=== PATIENT | female | born 1970 ===

== ENCOUNTER 2017-10-20 15:12 | Emergency (ER) | payer OTHER ==
[2017-10-20 15:19] VITALS: O2SAT 98
--- NOTE | 2017-10-20 15:56 | ED PDOC ---
HPI: General Adult Time Seen by Provider: 10/20/17 15:24 Chief Complaint (Nursing): Dizziness/Lightheaded Chief Complaint (Provider): headache, dizzy History Per: Patient, Activity Aid (Friend at bedside is translating for patient in macedonian) Additional Complaint(s): 47-year-old female with history of hypertension and diabetes presents with generalized headache and dizziness ongoing for 5 days. Patient [place] to this [place] and has been taking hypertension and diabetes medications from her [place]. She is currently on insulin and pills for diabetes and takes enalapril for blood pressure. For the last 5 days patient has felt intermittent headaches with dizziness. She denies chest pain, shortness of breath or dyspnea on exertion. Patient states she is compliant with her medications but is concerned she will run out of them soon. PMD: none Past Medical History Reviewed: Historical Data, Nursing Documentation, Vital Signs Vital Signs: Last Vital Signs Temp 98.5 F 10/20/17 15:16 Pulse 110 H 10/20/17 15:16 Resp 16 10/20/17 15:16 BP 103/74 10/20/17 15:16 Pulse Ox 98 10/20/17 17:23 - Medical History PMH: Diabetes, HTN - Surgical History Surgical History: Cholecystectomy - Family History Family History: States: No Known Family Hx - Living Arrangements Living Arrangements: With Family - Social History Current smoker - smoking cessation education provided: No Alcohol: None Drugs: Denies - Home Medications Home Medications: Ambulatory Orders Medication Instructions Recorded Enalapril Maleate [Vasotec] 20 mg PO DAILY #30 tab 10/20/17 MetFORMIN [glucoPHAGE] 1,000 mg PO BID #60 tab 10/20/17 - Allergies Allergies/Adverse Reactions: Allergies Allergy/AdvReac Type Severity Reaction Status Date / Time No Known Allergies Allergy Verified 10/20/17 15:15 Review of Systems ROS Statement: Except As Marked, All Systems Reviewed And Found Negative Constitutional: Negative for: Fever, Chills, Weakness Cardiovascular: Negative for: Chest Pain Respiratory: Negative for: Cough Gastrointestinal: Negative for: Nausea, Vomiting Neurological: Positive for: Headache, Dizziness, Other (Intermittent for 5 days) Physical Exam - Reviewed Nursing Documentation Reviewed: Yes Vital Signs Reviewed: Yes - Physical Exam Appears: Positive for: Well, Non-toxic, No Acute Distress Skin: Positive for: Normal Color. Negative for: Rash Eye Exam: Positive for: Normal appearance Cardiovascular/Chest: Positive for: Regular Rate, Rhythm Respiratory: Positive for: Normal Breath Sounds. Negative for: Wheezing, Respiratory Distress Gastrointestinal/Abdominal: Positive for: Soft. Negative for: Tenderness, Distended, Guarding, Rebound Back: Negative for: L CVA Tenderness, R CVA Tenderness Extremity: Positive for: Normal ROM. Negative for: Pedal Edema Neurologic/Psych: Positive for: Alert, Oriented - Laboratory Results Result Diagrams: 10/20/17 16:14 10/20/17 16:14 Urine dip results: Negative for: Leukocyte Esterase, Blood, Nitrate, Ketones, Glucose, Bilirubin, Protein - ECG O2 Sat by Pulse Oximetry: 98 Pulse Ox Interpretation: Normal - Other Rad CT head X-Ray: Read By Radiologist X-Ray Interpretation: no acute finding CXR X-Ray: Interpreted by Me, Viewed By Me X-Ray Interpretation: no acute finding Medical Decision Making Medical Decision Makin-year-old female with dizziness and headache Plan: CBC CMP Troponin EKG CXR IVF PO tylenol Glucose POC Initially glucose was 281 upon arrival, repeat glucose 179. Patient was given prescriptions for metformin and enalapril. She was referred to clinic for follow up. Disposition - Clinical Impression Clinical Impression: Dizziness, Diabetes, Hypertension - Patient ED Disposition Is Patient to be Admitted: No Counseled Patient/Family Regarding: Studies Performed, Diagnosis, Need For Followup, Rx Given - Disposition Referrals: [facility] [Outside] Disposition: Routine/Home Disposition Time: 18:40 Condition: STABLE Additional Instructions: Take prescription meds as directed. Follow-up with clinic in one to 2 days. Prescriptions: Enalapril Maleate [Vasotec] 20 mg PO DAILY #30 tab MetFORMIN [glucoPHAGE] 1,000 mg PO BID #60 tab Instructions: Diabetes Diet , Type 2 Diabetes, High Blood Pressure (DC), Dizziness, Nonvertigo, (DC) Forms: [employer] ([place]) Print Language: TOGOLESE
[2017-10-20] MEDS ORDERED: Sodium Chloride 0.9% 1,000 ML IV STA (15:59)
[2017-10-20 16:19] LABS: BASO # 0.1 K/uL (0.0-0.2); EOS # 0.1 K/uL (0.0-0.7); EOS % 1.5 % (0.0-4.0); HEMOGLOBIN 15.4 g/dL (12.0-16.0); LYMPH # 1.8 K/uL (1.0-4.3); LYMPH % 19.4 % (20.0-40.0); MEAN CELL VOLUME 84.4 fl (81.0-99.0); MEAN CORPUSCULAR HEMOGLOBIN 28.7 pg (27.0-31.0); MEAN CORPUSCULAR HGB CONC 34.1 g/dL (33.0-37.0); MEAN PLATELET VOLUME 7.6 fl (7.2-11.7); MONO # 0.4 K/uL (0.0-0.8); MONO % 4.6 % (0.0-10.0); NEUT # 6.7 K/uL (1.8-7.0); NEUT % 73.5 % (50.0-75.0); NRBC % 0.1 % (0.0-0.0); RBC 5.36 Mil/uL (3.80-5.20); RED CELL DISTRIBUTION WIDTH 14.3 % (11.5-14.5); WHITE BLOOD COUNT 9.2 K/uL (4.8-10.8)
--- NOTE | 2017-10-20 16:26 | RAD ---
Date of service: 10/20/2017 HISTORY: clearance COMPARISON: No prior. FINDINGS: LUNGS: Limited examination due to patient rotation to the right. The lungs are well inflated and clear. PLEURA: No significant pleural effusion identified, no pneumothorax apparent. CARDIOVASCULAR: Normal. OSSEOUS STRUCTURES: No significant abnormalities. VISUALIZED UPPER ABDOMEN: Normal. OTHER FINDINGS: None. IMPRESSION: Limited examination, no acute findings.
[2017-10-20 16:28] LABS: ALB/GLOB RATIO 1.4 (1.0-2.1); ALBUMIN 4.5 g/dL (3.5-5.0); ALT/SGPT 40 U/L (9-52); AST/SGOT 28 U/L (14-36); BLOOD UREA NITROGEN 20 mg/dl (7-17); CALCIUM 10.2 mg/dL (8.4-10.2); GFR NON-AFRICAN AMERICAN > 60
--- NOTE | 2017-10-20 16:40 | CT ---
Date of service: 10/20/2017 PROCEDURE: CT HEAD WITHOUT CONTRAST. HISTORY: dizziness, headache COMPARISON: None available. TECHNIQUE: Axial computed tomography images were obtained through the head/brain without intravenous contrast. Radiation dose: Total exam DLP = 779 mGy-cm. This CT exam was performed using one or more of the following dose reduction techniques: Automated exposure control, adjustment of the mA and/or kV according to patient size, and/or use of iterative reconstruction technique. FINDINGS: HEMORRHAGE: No intracranial hemorrhage. BRAIN: No mass effect or edema. No atrophy or chronic microvascular ischemic changes. Few, bilateral punctate benign-appearing basal ganglion calcifications nonspecific incidentally noted. These are not felt to be clinically significant. VENTRICLES: Unremarkable. No hydrocephalus. CALVARIUM: Unremarkable. PARANASAL SINUSES: Each lateral sphenoid sinus extension is prominent. There are also large bilateral retention cysts left greater than right. A possible concomitant fluid component with a these retention cysts is possible. This appearance can be seen in associations with headaches at the vertex MASTOID AIR CELLS: Unremarkable as visualized. No inflammatory changes. OTHER FINDINGS: None. IMPRESSION: No intracranial hemorrhage or mass effect. Bilateral prominent retention cyst in each large sphenoid sinus extension as referenced above.
[2017-10-20 19:17] VITALS: BP 128/78; PULSE 78; RESP 19; TEMP 97
--- NOTE | 2017-10-21 09:18 | CARD ---
APPROVED REPORT Date of service: 10/20/2017 EKG Measurement Heart [id number] <Conclusion> Normal sinus rhythm Normal ECG
== END 2017-10-20 19:18 | disposition home or self-care (01) ==
LOC: H.ER 15:12
DX: E11.9 Type 2 diabetes mellitus without complications (principal); I10 Essential (primary) hypertension; Z79.4 Long term (current) use of insulin; R42 Dizziness and giddiness
CPT/HCPCS: 70450; 71045; 80053; 81025; 82948; 84484; 85025; 93005; 99284; J7030